=== PATIENT | female | born 1955 | race African-American/Black ===

== ENCOUNTER 2017-05-06 07:30 | Outpatient (CLI) | payer OTHER ==
--- NOTE | 2017-05-11 10:39 | MMO ---
SCREENING MAMMOGRAPHY: Date: 05-06-17 Comparison: 05-02-16, 04-19-15, 04-14-14 History: Screening mammogram. FINDINGS: This study is interpreted with the assistance of computer aided detection. Breast parenchyma is primarily fatty replaced. No mass, architectural distortion or concerning calcif ication. IMPRESSION: BIRADS 1 - negative. Recommend annual screening mammography. POS: [facility]
== END 2017-05-06 07:31 | disposition home or self-care (01) ==
LOC: SCSMAMMO 07:30
PROVIDERS: ATTEND Family Medicine
DX: Z12.31 Encounter for screening mammogram for malignant neoplasm of breast (principal)
CPT/HCPCS: 77067

== ENCOUNTER 2018-01-29 13:12 | Emergency (ER) | payer OTHER | END 2018-01-29 14:37 | disposition home or self-care (01) | LOC: ERS 13:12 | DX: M43.6 Torticollis (principal); E11.9 Type 2 diabetes mellitus without complications; I10 Essential (primary) hypertension; F17.210 Nicotine dependence, cigarettes, uncomplicated; Z79.84 Long term (current) use of oral hypoglycemic drugs; Z79.899 Other long term (current) drug therapy | CPT/HCPCS: 99283 ==

== ENCOUNTER 2018-10-14 10:48 | Emergency (ER) | payer OTHER ==
--- NOTE | 2018-10-14 11:24 | RAD ---
4 views right knee. HISTORY: Trauma AP, lateral and both oblique views right knee obtained. Images demonstrate right knee arthroplasty in place. No evidence of acute fractures, subluxations or bony lesion seen. IMPRESSION: unremarkable right knee radiographs in a patient with previous right knee arthroplasty.
--- NOTE | 2018-10-14 11:26 | RAD ---
LEFT SHOULDER 3 VIEWS: Date: 10/14/18 HISTORY: Injury, left shoulder pain. FINDINGS/IMPRESSION: There are degenerative changes in the acromioclavicular and glenohumeral joints. No acute fracture or dislocation is identified. POS: [facility]
== END 2018-10-14 11:55 | disposition home or self-care (01) ==
LOC: ERS 10:48
DX: S80.01XA Contusion of right knee, initial encounter (principal); M25.512 Pain in left shoulder; E11.9 Type 2 diabetes mellitus without complications; B19.20 Unspecified viral hepatitis C without hepatic coma; F17.210 Nicotine dependence, cigarettes, uncomplicated; Z79.899 Other long term (current) drug therapy; Z79.84 Long term (current) use of oral hypoglycemic drugs; V09.29XA Pedestrian injured in traffic accident involving other motor vehicles, initial encounter
CPT/HCPCS: G0390

== ENCOUNTER 2019-02-28 15:33 | Emergency (ER) | payer OTHER ==
[2019-02-28 16:05] LABS: #Basophils 0.1 thou/uL (0.0-0.2); #Lymphocytes 2.6 thou/uL (1.20-3.40); #Monocytes 0.6 thou/uL (0.11-0.59); #Neutrophils 5.8 thou/uL (1.40-6.50); %Basophils 0.7 % (0.0-1.0); %Eosinophils 0.4 % (0.0-10.0); %Lymphocytes 28.9 % (21.0-51.0); Hemoglobin 13.4 g/dL (12.0-16.0); Mean Corpuscular HGB CONC 31.8 g/dL (32.0-36.0); Mean Platelet Volume 8.2 fL (7.4-10.4); Platelet Count 208 thou/uL (130-400); RBC Distribution Width 11.7 % (11.5-14.5); Red Blood Cell (RBC) Count 4.17 mill/uL (4.20-5.40); White Blood Cell (WBC) Count 9.1 thou/uL (4.8-10.8)
--- NOTE | 2019-02-28 16:22 | CT ---
CT Stone Protocol History: Left flank pain Comparison: None. Findings: There are a few scattered calcified granulomas versus aspirated contrast material within th e lower lobes as well as the lingula. No pericardial effusion. Diffuse hepatic steatosis. Large fat-containing supraumbilical hernia adjacent to what appears to be calcifications from a prior umbilical hernia repair material. The neck of the fat-containing hernia measures 1.6 cm in transverse dimension. No nephroureterolithiasis or hydroureteronephrosis. No secondary evidence of a recently passed stone. . Calcified granulomas of the spleen. The appendix is visualized and is normal. Noncontrast evaluation of the spleen is unremarkable as wel l as adrenal glands. Moderate facet arthropathy lower lumbar spine. No retroperitoneal periaortic adenopathy. Small retrop eritoneal lymph nodes are likely reactive. Moderate narrowing of the pubic symphysis with sclerosis. Impression: 1. No hydroureteronephrosis or nephroureterolithiasis. No secondary evidence of a recently passed sto ne. 2. Diffuse hepatic steatosis. 3. Fat-containing supraumbilical ventral hernia with a 1.6 cm neck.
[2019-02-28] MEDS ORDERED: Ketorolac Tromethamine 30 MG/ML VIAL ONE (16:30)
[2019-02-28 16:35] LABS: ALT (SGPT) 39 U/L (8-55); AST (SGOT) 51 U/L (5-34); Albumin 4.1 g/dL (3.4-4.8); Alkaline Phosphatase 59 U/L (40-110); Anion Gap 12 mmol/L (10-20); BUN (Urea Nitrogen) 6 mg/dL (9.8-20.1); Bilirubin, Total 0.9 mg/dL (0.2-1.2); CK (CPK) 99 U/L (29-168); Calc. Creatinine Clearance 0 mL/min (70-130); Calcium 9.8 mg/dL (7.8-10.44); Carbon Dioxide 26 mmol/L (23-31); Chloride 102 mmol/L (98-107); Estimated GFR-MDRD Greater than 90; Globulin 3.6 g/dL (2.4-3.5); Glucose 99 mg/dL (80-115); Lipase 20 U/L (8-78); Potassium 3.7 mmol/L (3.5-5.1); Protein, Total 7.7 g/dL (6.0-8.3); Sodium 136 mmol/L (136-145)
[2019-02-28 16:57] LABS: Bilirubin Negative (Negative); Blood, Urine Negative (Negative); Clarity Turbid (Clear); Glucose, Urine (Dipstick) Normal (Negative); Leukocyte 250 Leu/uL (Negative); Nitrite Negative (Negative); Protein, Urine (Dipstick) 30 mg/dL (Neg-Trace)
[2019-02-28 16:58] LABS: Bacteria/HPF 1+ HPF (None Seen)
== END 2019-02-28 17:14 | disposition home or self-care (01) ==
LOC: ERS 15:33
DX: G31.89 Other specified degenerative diseases of nervous system (principal); E11.9 Type 2 diabetes mellitus without complications; I10 Essential (primary) hypertension; F17.210 Nicotine dependence, cigarettes, uncomplicated; Z79.84 Long term (current) use of oral hypoglycemic drugs; Z79.899 Other long term (current) drug therapy
CPT/HCPCS: 36415; 74176; 80053; 81003; 81015; 82550; 83690; 84484; 85025; 93005; 96374; J1885

== ENCOUNTER 2019-10-12 08:06 | Outpatient (CLI) | payer OTHER ==
--- NOTE | 2019-10-12 08:54 | BD ---
DEXA BONE DENSITOMETRY: (Dual energy x-ray absorptiometry) DATE: 10/12/2019 HISTORY: 64-year old white female for age-related, post-menopausal, osteoporosis screening. weight: 135 lbs height: 69 in. Age of menopause: 64 COMPARISON: None available. FINDINGS: The bone mineral density (BMD) is given in grams per square centimeter (g/cm2): LUMBAR SPINE: BMD (g/cm^2) T score Z score L1: 0.980 -0.1 1.5 L2: 1.155 1.2 2.9 L3: 1.100 0.1 2.0 L4: 1.019 -0.4 1.5 Total: 1.063 0.1 1.9 HIP: BMD (g/cm^2) T score Z score Femoral neck: 0.858 0.1 1.6 Total: 1.075 1.1 2.3 IMPRESSION: 1.) The mean bone mineral density of the lumbar spine is normal. Fracture risk is not increased. 2) The bone mineral density of the femoral neck is normal. Fracture risk is not increased.
--- NOTE | 2019-10-12 09:14 | MMO ---
Bilateral MAMMO Bilat Screen [facility]DI. CLINICAL HISTORY: Patient is 64 years old and is seen for screening. The patient has the following family history of breast cancer: mother, at age 73. The patient has no personal history of cancer. VIEWS: The views performed were: bilateral craniocaudal and bilateral mediolateral oblique. FILMS COMPARED: The present examination has been compared to prior imaging studies performed at [facility] on 03/12/2011, 04/14/2014, 04/19/2015 and 05/02/2016. This study has been interpreted with the assistance of computer-aided detection. MAMMOGRAM FINDINGS: The breasts are almost entirely fat. There are no suspicious masses, suspicious calcifications, or new areas of architectural distortion. IMPRESSION: THERE IS NO MAMMOGRAPHIC EVIDENCE OF MALIGNANCY. A ROUTINE FOLLOW-UP MAMMOGRAM IN 1 YEAR IS RECOMMENDED. ACR BI-RADS Category 1 - Negative MAMMOGRAPHY NOTE: 1. A negative mammogram report should not delay a biopsy if a dominant of clinically suspicious mass is present. 2. Approximately 10% to 15% of breast cancers are not detected by mammography. 3. Adenosis and dense breasts may obscure an underlying neoplasm. Reported by: ETHAN YANEZ MD Electonically Signed: [id number]
== END 2019-10-12 08:07 | disposition home or self-care (01) ==
LOC: BICMAMMO 08:06
PROVIDERS: ATTEND Family Medicine
DX: Z12.31 Encounter for screening mammogram for malignant neoplasm of breast (principal); Z13.820 Encounter for screening for osteoporosis; M17.10 Unilateral primary osteoarthritis, unspecified knee; Z80.3 Family history of malignant neoplasm of breast
CPT/HCPCS: 77067; 77080

== ENCOUNTER 2020-10-17 08:10 | Outpatient (CLI) | payer MEDICARE | END 2020-10-17 08:11 | disposition home or self-care (01) | LOC: BICMAMMO 08:10 | PROVIDERS: ATTEND Family Medicine | DX: Z12.31 Encounter for screening mammogram for malignant neoplasm of breast (principal); Z80.3 Family history of malignant neoplasm of breast | CPT/HCPCS: 77063; 77067 ==

== ENCOUNTER 2020-11-10 11:23 | Inpatient (IN) | payer MEDICARE, MEDICAID ==
[~2020-11-10 11:23] MED LIST: Iopamidol-370 76% 500 ML 1 ML ONE
[2020-11-10 12:47] LABS: #Basophils 0.1 thou/uL (0.0-0.2); #Lymphocytes 2.6 thou/uL (1.20-3.40); #Monocytes 0.5 thou/uL (0.11-0.59); #Neutrophils 4.7 thou/uL (1.40-6.50); %Basophils 0.8 % (0.0-1.0); %Eosinophils 0.6 % (0.0-10.0); %Lymphocytes 32.8 % (21.0-51.0); %Monocytes 6.8 % (0.0-10.0); Hemoglobin 13.8 g/dL (12.0-16.0); Mean Corpuscular HGB CONC 32.2 g/dL (32.0-36.0); Mean Corpuscular Hemoglobin 33.7 pg (27.0-31.0); Mean Platelet Volume 8.1 fL (7.4-10.4); Platelet Count 164 thou/uL (130-400); RBC Distribution Width 11.6 % (11.5-14.5); Red Blood Cell (RBC) Count 4.09 mill/uL (4.20-5.40)
[2020-11-10 13:09] LABS: ALT (SGPT) 65 U/L (8-55); AST (SGOT) 96 U/L (5-34); Albumin 3.6 g/dL (3.4-4.8); Alkaline Phosphatase 79 U/L (40-110); Anion Gap 16 mmol/L (10-20); BUN (Urea Nitrogen) 8 mg/dL (9.8-20.1); Bilirubin, Total 0.7 mg/dL (0.2-1.2); Calc. Creatinine Clearance 0 mL/min (70-130); Carbon Dioxide 23 mmol/L (23-31); Chloride 103 mmol/L (98-107); Globulin 3.3 g/dL (2.4-3.5); Glucose 181 mg/dL (80-115); Lipase 27 U/L (8-78); Potassium 3.8 mmol/L (3.5-5.1); Protein, Total 6.9 g/dL (5.8-8.1); Sodium 138 mmol/L (136-145)
[2020-11-10] MEDS ORDERED: Ondansetron PF 4 MG/2 ML Vial ONE ×2 (14:17→15:44)
[2020-11-10] MEDS ORDERED: Fentanyl 100 MCG/2 ML VIAL ONE ×4 (14:17→17:33)
[2020-11-10] MEDS ORDERED: cefOXitin Sodium/Dextrose 2 GM/50 ML BAG ONE (14:57)
[2020-11-10] MEDS ORDERED: Dexmedetomidine 200 MCG/2 ML VIAL ONE (15:17)
[2020-11-10] MEDS ORDERED: Midazolam HCl 2 mg/2 ml Vial ONE (15:43)
[2020-11-10] MEDS ORDERED: PROPOFOL 200 MG/20 ML VIAL ONE (15:44)
[2020-11-10] MEDS ORDERED: Glycopyrrolate 0.2 MG/ML 5 ML SYRINGE ONE (15:44)
[2020-11-10] MEDS ORDERED: Ketorolac Tromethamine 30 MG/ML VIAL ONE (15:44)
[2020-11-10] MEDS ORDERED: Lidocaine 1% PF 5 ML VIAL ONE (15:44)
[2020-11-10] MEDS ORDERED: Vecuronium 10 MG VIAL ONE (15:44)
[2020-11-10] MEDS ORDERED: Succinylcholine 200 MG/10 ml SYRINGE FS ONE (15:44)
[2020-11-10] MEDS ORDERED: Dexamethasone 20 MG/5 ML VIAL ONE (15:44)
[2020-11-10] MEDS ORDERED: Bupivacaine 0.25% HCL 30 ML VIAL ONE (15:59)
[2020-11-10] MEDS ORDERED: Lidocaine 1% w/Epinephrine 1:100K 20 ML VIAL ONE (15:59)
[2020-11-10] MEDS ORDERED: PACU-Morphine 4MG/ML VIAL SLOW IVP PRN (16:13)
[2020-11-10] MEDS ORDERED: Promethazine HCl 25 MG/ML VIAL IM PRN ×2 (16:13→16:21)
[2020-11-10] MEDS ORDERED: Promethazine HCl 25 MG/ML VIAL IVPB PRN (16:13)
[2020-11-10] MEDS ORDERED: HYDROmorphone 2 MG/ML VIAL SLOW IVP PRN (16:13)
[2020-11-10] MEDS ORDERED: Ondansetron HCl/PF 4 MG/2 ML Vial IVP PRN (16:13)
[2020-11-10] MEDS ORDERED: Morphine Sulfate 2 MG/ML SYRINGE SLOW IVP PRN (16:13)
[2020-11-10] MEDS ORDERED: Dextrose 50% Abboject 50 ML SYRINGE SLOW IVP PRN (16:21)
[2020-11-10] MEDS ORDERED: Dextrose 5% in Water 1,000 ML IV PRN (16:21)
[2020-11-10] MEDS ORDERED: Morphine 4 MG/ML VIAL SLOW IVP PRN (16:21)
[2020-11-10] MEDS ORDERED: Ondansetron PF 4 MG/2 ML Vial IVP PRN (16:21)
[2020-11-10] MEDS ORDERED: hydrALAZINE 20 MG/ML VIAL SLOW IVP PRN (16:21)
[2020-11-10] MEDS ORDERED: HumaLOG 300 UNITS/3 ML VIAL SC PRN (16:21)
[2020-11-10] MEDS ORDERED: SUGAMMADEX SODIUM 200 MG/2 ML VIAL ONE (16:24)
[2020-11-10] MEDS ORDERED: SUGAMMADEX SODIUM 500 MG/5 ML VIAL ONE (16:25)
[2020-11-10] MEDS: Sodium Chloride 0.9% 1,000 ML IV SCH (20:06)
[2020-11-10] MEDS: HYDROcodone/Acetaminophen 7.5/325 mg Tablet PO PRN (20:07)
[2020-11-10] MEDS: Enoxaparin Sodium 40 MG/0.4 ML SYRINGE SC SCH (21:48)
[2020-11-10] MEDS: Famotidine/PF 20 mg/2ml Vial SLOW IVP SCH (21:49)
[2020-11-10] MEDS: Morphine 2 MG/ML VIAL SLOW IVP PRN (21:49)
[2020-11-10] MEDS: Famotidine 20 MG TAB PO SCH (21:50)
[2020-11-10 22:48] VITALS: BMI 36.5
[2020-11-10] MEDS: cefOXitin Sodium/Dextrose,Iso 2 GM in Premix Bag 1 BAG IVPB SCH (23:08)
[2020-11-11] MEDS: HYDROcodone/Acetaminophen 7.5/325 mg Tablet PO PRN ×3 (03:02→21:26)
[2020-11-11] MEDS: cefOXitin Sodium/Dextrose,Iso 2 GM in Premix Bag 1 BAG IVPB SCH (06:24)
[2020-11-11] MEDS: Morphine 2 MG/ML VIAL SLOW IVP PRN ×2 (06:34→19:10)
[2020-11-11] MEDS: Famotidine 20 MG TAB PO SCH ×2 (08:19→21:27)
[2020-11-11] MEDS: Sodium Chloride 0.9% 1,000 ML IV SCH (08:20)
[2020-11-11] MEDS: Famotidine/PF 20 mg/2ml Vial SLOW IVP SCH ×2 (08:25→21:31)
[2020-11-11] MEDS: Enoxaparin Sodium 40 MG/0.4 ML SYRINGE SC SCH (21:26)
[2020-11-12] MEDS: Morphine 2 MG/ML VIAL SLOW IVP PRN (01:52)
[2020-11-12] MEDS: HYDROcodone/Acetaminophen 7.5/325 mg Tablet PO PRN ×2 (04:05→10:07)
[2020-11-12 07:44] VITALS: BP 136/60; TEMP 97.5
[2020-11-12] MEDS: Famotidine 20 MG TAB PO SCH (08:32)
[2020-11-12] MEDS: Famotidine/PF 20 mg/2ml Vial SLOW IVP SCH (08:38)
== END 2020-11-12 11:55 | disposition home or self-care (01) | DRG 355 ==
LOC: ERS 11:23 → SDC 14:59 → SURG A 15:06
PROVIDERS: ADMIT Surgery; ATTEND Surgery
PROC: 0WUF0JZ Supplement Abdominal Wall with Synthetic Substitute, Open Approach (ICD-10-PCS; principal; 2020-11-10)
DX: K43.6 Other and unspecified ventral hernia with obstruction, without gangrene (principal); Z20.822 Contact with and (suspected) exposure to COVID-19; E11.9 Type 2 diabetes mellitus without complications; I10 Essential (primary) hypertension; E66.9 Obesity, unspecified; Z68.36 Body mass index [BMI] 36.0-36.9, adult; Z83.3 Family history of diabetes mellitus; Z82.49 Family history of ischemic heart disease and other diseases of the circulatory system; Z98.51 Tubal ligation status; Z86.19 Personal history of other infectious and parasitic diseases; Z79.899 Other long term (current) drug therapy; Z79.82 Long term (current) use of aspirin; Z79.84 Long term (current) use of oral hypoglycemic drugs
CPT/HCPCS: 36415; 36416; 74177; 80053; 83690; 84484; 85025; 93005; 96374; 96375; C1781; J0694; J1100; J1650; J1815; J1885; J2250; J2270; J2405; J2704; J3010; Q9967; S0020; S0028

== ENCOUNTER 2021-11-12 11:41 | Outpatient (CLI) | payer OTHER | END 2021-11-12 11:42 | disposition home or self-care (01) | PROVIDERS: ATTEND Family Medicine | DX: Z74.09 Other reduced mobility (principal) ==

== ENCOUNTER 2022-12-01 10:58 | Outpatient (CLI) | payer OTHER | END 2022-12-01 10:59 | disposition home or self-care (01) | LOC: BICMAMMO 10:58 | PROVIDERS: ATTEND Student in an Organized Health Care Education/Training Program | DX: Z12.31 Encounter for screening mammogram for malignant neoplasm of breast (principal); Z80.3 Family history of malignant neoplasm of breast | CPT/HCPCS: 77063; 77067 ==

== ENCOUNTER 2024-05-20 08:38 | Outpatient (CLI) | payer OTHER, MEDICAID | END 2024-05-20 08:39 | disposition home or self-care (01) | LOC: BICULT 08:38 | DX: R74.01 Elevation of levels of liver transaminase levels (principal); K80.20 Calculus of gallbladder without cholecystitis without obstruction | CPT/HCPCS: 76705 ==